=== PATIENT | male | born 2000 | race Caucasian/White ===

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

== ENCOUNTER 2023-11-16 08:21 | Emergency (ER) | payer OTHER, SELFPAY ==
[~2023-11-16] VITALS: Ht 172.7 cm; Wt 62.4 kg
[~2023-11-16 08:21] MED LIST changes: +ZYRTTAB8 PO
[2023-11-16] MEDS ORDERED: [UNRECOGNIZED DRUG - OTHER] PO (08:39)
[2023-11-16] MEDS ORDERED: PHEN-815 PO (08:39)
[2023-11-16] MEDS: ONDANSETRON 4MG 2ML VIAL IV ONE (09:57)
[2023-11-16] MEDS: KETOROLAC 30 MG/ML 1ML VIAL IV ONE (09:57)
[2023-11-16] MEDS: NS 1,000 ML IV ONE (09:57)
[2023-11-16 09:58] LABS: BASO % 0.1 % (0.0-1.0); HEMOGLOBIN 15.4 g/dl (13.5-17.5); LYMPH # 1.2 10^3/uL (1.5-5.0); MEAN CORPUSCULAR VOLUME 82.9 fl (80.0-96.0); MONO # 1.2 10^3/uL (0.0-0.8); MONO % 8.9 % (2.0-8.0); NEUTROPHILS # 11.2 10^3/uL (1.5-8.5); NEUTROPHILS % 81.7 % (36.0-66.0); PLATELET COUNT, AUTOMATED 174 10^3/uL (150-450); RED BLOOD COUNT 5.31 10^6/uL (4.30-6.10); WHITE BLOOD COUNT 13.7 10^3/uL (4.0-10.0)
[2023-11-16] MEDS: ALBUTEROL 90 MCG/ACT 8GM HFA INHALER INH ONE (10:31)
[2023-11-16 10:36] LABS: BLOOD UREA NITROGEN 13 MG/DL (9-23); CALCIUM LEVEL 8.5 MG/DL (8.5-10.1); CARBON DIOXIDE LEVEL 26 MMOL/L (20-31); CHLORIDE LEVEL 102 MMOL/L (98-107); CREATININE FOR GFR 0.91 MG/DL (0.70-1.30); GLOMERULAR FILTRATION RATE > 60.0 (>60); GLUCOSE, FASTING 90 MG/DL (60-100); POTASSIUM SERUM 4.2 MMOL/L (3.5-5.1); SODIUM LEVEL 136 MMOL/L (136-145)
[2023-11-16] MEDS ORDERED: BENZ200C70 PO (11:15)
[2023-11-16] MEDS ORDERED: VENTAER INH (11:15)
[2023-11-16] MEDS ORDERED: ONDA4TAB6 PO (11:15)
[2023-11-16 11:29] VITALS: BP 142/72; TEMP 98.5; O2SAT 98
== END 2023-11-16 11:30 | disposition home or self-care (01) ==
LOC: M ED 08:21
DX: J09.X9 Influenza due to identified novel influenza A virus with other manifestations (principal); J45.909 Unspecified asthma, uncomplicated; F17.290 Nicotine dependence, other tobacco product, uncomplicated; Z79.51 Long term (current) use of inhaled steroids; Z79.899 Other long term (current) drug therapy
CPT/HCPCS: 80048; 85025; 87486; 87581; 87633; 87798; 94640; 96361; 96374; 99284; J1885; J2405

== ENCOUNTER 2024-05-14 10:02 | Emergency (ER) | payer OTHER ==
[~2024-05-14] VITALS: Ht 175.3 cm; Wt 62.9 kg
[~2024-05-14 10:02] MED LIST changes: +BENZ200C70 PO; +ONDA-282 PO; +PHEN-815 PO; +VENTAER INH; +[UNRECOGNIZED DRUG - OTHER] PO
[2024-05-14 10:06] VITALS: BP 144/87; TEMP 97.5; O2SAT 100
[2024-05-14] MEDS ORDERED: CEPH500C PO (11:26)
[2024-05-14] MEDS: KETOROLAC 60MG 2ML VIAL IM ONE (11:27)
[2024-05-14] MEDS: BOOSTRIX VACCINE (TETANUS/DIPHTH/ACEL. PERTUSSIS) 0.5ML SYR IM.IMMUN ONE (11:28)
== END 2024-05-14 11:43 | disposition home or self-care (01) ==
LOC: M ED 10:02
DX: S61.212A Laceration without foreign body of right middle finger without damage to nail, initial encounter (principal); Y92.9 Unspecified place or not applicable; Y93.9 Activity, unspecified; Y99.0 Civilian activity done for income or pay; F17.210 Nicotine dependence, cigarettes, uncomplicated; F12.10 Cannabis abuse, uncomplicated; Z79.2 Long term (current) use of antibiotics; Z23 Encounter for immunization
CPT/HCPCS: 12001; 90471; 90715; 96372; 99283; J1885

== ENCOUNTER → 2025-07-15 | Outpatient (REF) | payer OTHER ==
[~2025-07-15] MED LIST changes: +CEPH500C PO; -IBUP-1022 PO; +IBUP600T42 PO
== END ==
LOC: M LAB REF 20:44
PROVIDERS: ATTEND Physician Assistant
DX: J02.9 Acute pharyngitis, unspecified (principal)